=== PATIENT | male | born 2000 | race Caucasian/White ===

== ENCOUNTER 2024-01-23 00:47 | Emergency (ER) | payer SELFPAY ==
[~2024-01-23] VITALS: Ht 167.6 cm; Wt 75.0 kg
[2024-01-23 01:39] VITALS: O2SAT 100
[2024-01-23] MEDS: LIDOCAINE HCL/PF 1% 10 MG/ML 5ML VIAL INFIL ONE (02:30)
[2024-01-23] MEDS: LIDOCAINE HCL/PF 1% 10 MG/ML 5ML VIAL INFIL NR (02:45)
[2024-01-23] MEDS ORDERED: MUPI15CR11 TP (02:49)
[2024-01-23] MEDS ORDERED: SULF1TAB48 MT (02:49)
[2024-01-23] MEDS ORDERED: CEPH500C2 MT (02:49)
[2024-01-23] MEDS ORDERED: IBUP-2029 PO (02:49)
[2024-01-23 03:00] VITALS: TEMP 98.8
[2024-01-23] MEDS: BACITRACIN ZINC OINT UDPKT TOP ONE (03:13)
[2024-01-23] MEDS: CEFTRIAXONE SODIUM 1G VIAL IM NR (03:13)
[2024-01-23 03:14] VITALS: BP 130/65; PULSE 80; RESP 18
[2024-01-23] MEDS: IBUPROFEN 600MG TABLET PO STA (03:14)
== END 2024-01-23 04:00 | disposition home or self-care (01) ==
LOC: ER 00:47
DX: L02.414 Cutaneous abscess of left upper limb (principal); J34.0 Abscess, furuncle and carbuncle of nose
CPT/HCPCS: 96372; 99283; J0696; J3490; Z7610